=== PATIENT | male | born 1950 | race African-American/Black ===

== ENCOUNTER 2022-04-01 08:48 | Outpatient (CLI) | payer MEDICARE ==
[2022-04-01] VITALS (12 sets, daily range): BP systolic 147–185; BP diastolic 72–91
[~2022-04-01] VITALS: Ht 175.3 cm; Wt 85.0 kg
[2022-04-01] MEDS ORDERED: IODIXANOL 320 200 ML in NS 200 ML IART ONE (09:15)
[2022-04-01 09:42] LABS: HEMATOCRIT 29.3 % (39.0-53.0); HEMOGLOBIN 9.3 g/dL (13.0-17.5); RED BLOOD COUNT 3.85 x10^6/uL (4.30-5.70); RED CELL DISTRIBUTION WIDTH 13.3 % (11.5-14.5)
[2022-04-01 09:51] LABS: CALCIUM 8.5 mg/dL (8.5-10.1); CREATININE 1.3 mg/dL (0.7-1.3); GFR 65.5; POTASSIUM 4.1 mmol/L (3.5-5.1)
[2022-04-01 09:52] LABS: PROTHROMBIN TIME PATIENT 12.7 SEC (11.7-14.0)
[2022-04-01] MEDS ORDERED: [UNRECOGNIZED DRUG - CODE] PO (10:24)
[2022-04-01] MEDS ORDERED: OXYC5CAP PO (10:24)
[2022-04-01] MEDS ORDERED: [UNRECOGNIZED DRUG - OTHER] PO (10:24)
[2022-04-01] MEDS ORDERED: FERR325T14 PO (10:24)
[2022-04-01] MEDS ORDERED: TEST200V3 IM (10:24)
[2022-04-01] MEDS ORDERED: VITAMIN A PO (10:24)
[2022-04-01] MEDS ORDERED: PRED5DRO20 LEFTEYE (10:24)
[2022-04-01] MEDS ORDERED: LISI1TAB35 PO (10:24)
[2022-04-01] MEDS ORDERED: GABA800T5 PO (10:24)
[2022-04-01] MEDS ORDERED: ATOR20TA58 PO (10:24)
[2022-04-01] MEDS ORDERED: [UNRECOGNIZED DRUG - CODE] PO (10:24)
[2022-04-01] MEDS ORDERED: ASCO500T4 PO (10:24)
[2022-04-01] MEDS ORDERED: CINN1CAP2 PO (10:24)
[2022-04-01] MEDS ORDERED: ACET325T9 PO (10:24)
[2022-04-01] MEDS ORDERED: METF850T8 PO (10:24)
[2022-04-01] MEDS ORDERED: IRON18TA PO (10:24)
[2022-04-01] MEDS ORDERED: PYRI50CA PO (10:24)
[2022-04-01] MEDS ORDERED: OFLO5DRO4 LEFTEYE (10:24)
[2022-04-01] MEDS ORDERED: ONDA4TAB12 PO (10:24)
[2022-04-01] MEDS ORDERED: [UNRECOGNIZED DRUG - CODE] PO (10:24)
[2022-04-01] MEDS ORDERED: fentaNYL PF VIAL 100 MCG/2 ML VIAL ONE (10:25)
[2022-04-01] MEDS ORDERED: NITROGLYCERIN 200 MCG/2 ML SYRINGE FOR CATH/VASC LAB. ONE (10:25)
[2022-04-01] MEDS ORDERED: VERAPAMIL 5 MG/2 ML VIAL. ONE (10:25)
[2022-04-01] MEDS ORDERED: MIDAZOLAM HCL/PF 2 MG/2 ML VIAL. ONE (10:25)
[2022-04-01] MEDS ORDERED: HEPARIN for IV BOLUS 10,000 UNIT/10 ML VIAL. ONE (10:25)
[2022-04-01] MEDS ORDERED: LIDOCAINE 1% PF 2 ML VIAL. ONE (10:33)
[2022-04-01] MEDS ORDERED: LIDOCAINE 1% Multi-Dose 20 ML VIAL. ONE (10:47)
[2022-04-01] MEDS ORDERED: fentaNYL PF VIAL 100 MCG/2 ML VIAL IV ONE (11:15)
[2022-04-01] MEDS ORDERED: LIDOCAINE 1% Multi-Dose 20 ML VIAL. INJ ONE (11:15)
[2022-04-01] MEDS ORDERED: MIDAZOLAM HCL/PF 2 MG/2 ML VIAL. IV ONE (11:15)
[2022-04-01] MEDS ORDERED: LIDOCAINE 1% PF 2 ML VIAL. INJ ONE (11:15)
--- NOTE | 2022-04-01 14:55 | NUR ---
Discharge Note: LORENZO SAINZ Discharge instructions and discharge home medications reviewed with Patient and a copy given. All questions have been answered and understanding verbalized. The following instructions and handouts were given: angiography care after,radial site care, groin site care,adult moderate sedation Discontinued lines and drains: Peripheral IV intact. Patient discharged to Home or Self Care withFamily Membervia Wheelchair
--- NOTE | 2022-04-02 07:45 | CARD ---
MR#: [id number] Date of Study: 04/01/2022 Ordering Physician: CONRADO KRUEGER, Referring Physician: CONRADO KRUEGER Tech: RT Letha(R) APPROVED REPORT Patient StatusOUT-PATIENT [employer] Floorperson: RT Letha(R) Procedure(s) performed: Aortogram with bilateral lower extremity runoff fluoro time: 3.8min dose: [id number] contrast: 68cc visi moderate sedation: 46min INDICATION FOR PROCEDURE The indication(s) include : Peripheral artery disease with nonhealing wound. CASE TECHNIQUE After explaining the risks, benefits, and alternative options, informed consent was obtained from the patient. IV conscious sedation was used throughout procedure with appropriate monitoring and was per formed in the presence of a registered nurse who was an independent trained observer other than the mariana sandy performing the procedure. During this case, Fluoroscopy and low osmolar contrast were used f or imaging. Specimen(s) Removed: No Estimated Blood loss: 15 cc's. PROCEDURE NARRATIVE After explaining the risk, benefits and alternative options, informed consent was obtained from bharath barroso. Patient was brought to the cardiac [facility] and his right wrist was prepped and draped in the us ual fashion. Arterial access was obtained in the right radial artery but due to severe vasospasm, we could not insert even a 4.5 Guyanese sheath. Hence we decided to change access site right common femo ral artery. 10 cc of 2% lidocaine was infiltrated into the skin and subcutaneous tissues of the prev iously prepped and draped right groin. Arterial access was obtained in the right common femoral angie ry and a 6 Guyanese sheath was inserted. 6 Guyanese Omni Flush catheter was then used to perform aortoil iac angiography. The catheter was then advanced over the aortic yana and with the tip positioned i n the left common femoral artery, selective left lower extremity angiography was performed. Contrast injection were performed through the sheath in the right groin for selective right lower extremity a ngiography. Patient tolerated the procedure well. Hemostasis in the right wrist was achieved using TR band and right groin using Angio-Seal. There were no immediate complications. FINDINGS 1. No significant stenosis involving the distal descending aorta 2. No significant stenosis involving bilateral common and external iliac arteries 3. No significant stenosis involving bilateral common femoral arteries 4. The superficial femoral arteries bilaterally were heavily calcified but did not show any signific ant stenosis. 5. The popliteal arteries bilaterally did not show any significant stenosis. 6. The left posterior tibial artery showed 100% chronic total occlusion proximally with reconstituti on in the proximal to mid segment via collaterals. The left peroneal artery showed two tandem 70% st enosis in the distal segment. The left anterior tibial artery showed moderate to severe diffuse dise ase distally without any focal critical lesions. 7. The right leg showed good two-vessel runoff via anterior tibial and peroneal arteries. The right posterior tibial artery showed 90% stenosis in the proximal segment. 8. Of note, there was sluggish flow noted in all the vessels probably from diffuse small vessel dise ase. Conclusion Below the knee peripheral artery disease as described above without any major vascular stenosis above the knee. Recommendations Patient stated that his wounds have actually started getting better with regular wound care. We will consider left peroneal CASHIER CHECKER if his wounds stop healing. Signed by : Conrado Krueger, Electronically Approved : 04/01/2022 13:51:34
--- NOTE | 2022-04-02 07:46 | CARD ---
MR#: [id number] Date of Study: 04/01/2022 Ordering Physician: CONRADO KRUEGER, Referring Physician: Anny CARDOZO: Vinh Mike [facility] APPROVED REPORT EXAM: Two-dimensional and M-mode echocardiogram with Doppler and color Doppler. Other Information Quality : AverageHR: 67bpm Rhythm : NSR INDICATION Hypertension/HCVD RISK FACTORS Hypertension 2D DIMENSIONS Left Atrium(2D)3.8 (1.6-4.0cm)IVSd1.0 (0.7-1.1cm) Aortic Root(2D)3.1 (2.0-3.7cm)LVDd4.4 (3.9-5.9cm) LVOT Diameter2.0 (1.8-2.4cm)PWd1.0 (0.7-1.1cm) LA Xmxzjn06 (18-58mL)LVDs2.1 (2.5-4.0cm) FS (%) 52.3 %SV71.6 ml LVEF(%)83.6 (>50%) Aortic Valve AoV Peak Arik.126.7cm/sAoV VTI26.2cm AO Peak GR.6.4mmHgLVOT Peak Arik.86.6cm/s AO Mean GR.3mmHgAVA (VMAX)2.24cm2 Mitral Valve MV E Gxtelvif78.8cm/sMV E Peak Gr.5mmHg MV DECEL [id number] A Glyvhnke81.1cm/s MV E Mean Gr.2mmHgE/A Ratio0.7 Pulmonary Valve PV Peak Imsszrsb01.7cm/s Tricuspid Valve TR P. Lgklsxxq615fa/sTR Peak Gr.9mmHg Pulmonary Vein S1 Swiurpoi77.1cm/sD2 Tzvftmhf87.0cm/s LEFT VENTRICLE The left ventricle is normal size. There is normal left ventricular wall thickness. The left ventricu lar systolic function is normal. The ejection fraction is 65-70%. There is normal LV segmental wall m otion. Transmitral Doppler flow pattern is Grade I-abnormal relaxation pattern. No left ventricle thr ombus noted on this study. There is no ventricular septal defect visualized. There is no left ventric ular aneurysm. There is no mass noted in the left ventricle. RIGHT VENTRICLE The right ventricle is normal size. There is normal right ventricular wall thickness. The right ventr icular systolic function is normal. ATRIA The left atrium size is normal. The right atrium size is normal. The interatrial septum is intact wit h no evidence for an atrial septal defect or patent foramen ovale as noted on 2-D or Doppler imaging. AORTIC VALVE The aortic valve is normal in structure and function. Doppler and Color Flow revealed no significant aortic regurgitation. There is no significant aortic valvular stenosis. There is no aortic valvular v egetation. MITRAL VALVE The mitral valve is normal in structure and function. There is no evidence of mitral valve prolapse. There is no mitral valve stenosis. Doppler and Color-flow revealed trace mitral regurgitation. TRICUSPID VALVE The tricuspid valve is normal in structure and function. Doppler and Color Flow revealed trace tricus pid regurgitation. The PA pressure was estimated at 15-20 mmHg. There is no tricuspid valve prolapse or vegetation. There is no tricuspid valve stenosis. PULMONIC VALVE The pulmonary valve is normal in structure and function. Doppler and Color Flow revealed no pulmonic valvular regurgitation. There is no pulmonic valvular stenosis. GREAT VESSELS The aortic root is normal in size. The ascending aorta is normal in size. The pulmonary artery is nor mal. The IVC is not well seen. PERICARDIAL EFFUSION There is no pleural effusion. There is no evidence of significant pericardial effusion. Critical Notification Critical Value: No <Conclusion> The left ventricular systolic function is normal. The ejection fraction is 65-70%. There is normal LV segmental wall motion. Transmitral Doppler flow pattern is Grade I-abnormal relaxation pattern. Trace mitral regurgitation. Trace tricuspid regurgitation. The PA pressure was estimated at 15-20 mmHg. There is no evidence of significant pericardial effusion. Signed by : Conrado Krueger, Electronically Approved : 04/01/2022 14:16:44
== END 2022-04-01 15:00 | disposition home or self-care (01) ==
LOC: CCL 08:48
PROVIDERS: ATTEND Internal Medicine Cardiovascular Disease
DX: I73.9 Peripheral vascular disease, unspecified (principal); I10 Essential (primary) hypertension; E78.00 Pure hypercholesterolemia, unspecified; E11.9 Type 2 diabetes mellitus without complications; M19.90 Unspecified osteoarthritis, unspecified site; Z79.899 Other long term (current) drug therapy; Z98.890 Other specified postprocedural states
CPT/HCPCS: 36246; 36415; 75625; 75716; 80048; 85027; 85610; 93306; 99152; 99153; C1760; C1769; C1894; J1644; J2250; J3010; J3490; J7050; Q9967; G0269; C8929; J7030